=== PATIENT | male | born 1985 | race Caucasian/White ===

== ENCOUNTER → 2016-10-16 | Outpatient (CLI) | payer BC ==
[~2016-10-16] MED LIST: ONDN4T PO; PRED20TA PO
[2016-10-16 15:38] VITALS: BP 142/90
--- NOTE | 2016-10-16 15:38 | Urgent Care T Sheet Gen (E) ---
Intake General Temperature (Fahrenheit): 97.6 Pulse: 101 Blood Pressure Systolic: 142 Blood Pressure Diastolic: 90 (been taking Sudafed) Respirations: 18 SPO2: 96 Description of Symptoms Patient presents with nasal congestion x 3 days. No fever. No cough. States his teeth hurt. Had some left over Amoxicillin which he started taking a few days ago. Also been taking Sudafed. History of Present Illness Allergies: Coded Allergies: No Known Drug Allergies (Unverified , 02/11/14) Home Meds Active Scripts Prednisone 20 Mg [id number] Mg PO DAILY #6 TAB Prov:SAMANTHA CALVERT 10/16/16 Respiratory Constitutional Symptoms: No syptoms reported EENTM: Nose CongestionNo Throat pain Respiratory: No symptoms reported Cardiovascular: No symptoms reported Gastrointestinal/Abdominal: No symptoms reported Neurological: Headache All Other Systems Reviewed Remaining Systems: All other systems reviewed with negative findings Past Dxtogxd-Fxznbi-Auxtxc Hx Patient's Social History Alcohol Use: Occasionally Uses Smoking Status: Never smoker Surgeries/Hospitalizations Hospitalization/Surgery Hx: Orchiectomy, right port placement Respiratory Respiratory History: None Cardiovascular Cardiovascular History: None Comment: not being treated Neuro/Muscular Neuro/Muscular History: Back Problems, None Genitouinary Genitourinary History: None Gastrointestinal GI/Endocrine History: None Diabetes Diabetes: No HEENT Impaired Vision: None Hearing Impaired: None Integumentary Integumentary History: None Cancer History of Cancer?: Yes Cancer type: Testicular Psychosocial Behavior Disorders: None Physical Exam Physical Exam General Appearance: WD/WN No apparent distress Eyes, Ears, Nose, Throat Ex: TMs normal Pharynx normal Other (nasal congestion with clear, thin nasal drainage. turbinates are fairly normal in color. some tenderness over maxillary sinuses.) Neck Exam: SuppleNo Lymphadenopathy Respiratory Exam: Lungs clear Normal breath sounds Cardiovascular Exam: Regular rate, rhythm Departure Urgent Care Impression Impression: Primary Impression: URI (upper respiratory infection) Qualified Code: J00 - Acute nasopharyngitis [common cold] Departure Disposition: HOME OR SELF-CARE Condition: Stable Referrals: Daryl Lunsford MD (PCP) Additional Instructions: Most likely this is a viral URI however since he started the Amoxicillin, he needs to finish it. I have also prescribed some Prednisone for inflammation and congestion. DC OTC cold meds. They are most likely increasing his BP Rest. Fluids. No NSAIDs while on steroid Return as needed Patient understands DC instructions. All questions were answered. Scripts Prednisone 20 Mg [id number] Mg PO DAILY #6 TAB Prov:SAMANTHA CALVERT 10/16/16 End of report . SAMANTHA CALVERT Oct 16, 2016 11:13
== END ==
LOC: MHUC 10:52
PROVIDERS: ATTEND Physician Assistant
DX: J00 Acute nasopharyngitis [common cold] (principal)
CPT/HCPCS: 99213

== ENCOUNTER → 2016-11-13 | Outpatient (CLI) | payer BC ==
[2016-11-13 08:14] LABS: BASOPHILS % (AUTO) 1 % (0-2); EOSINOPHILS # (AUTO) 0.2 10^3uL; EOSINOPHILS % (AUTO) 4 % (0-4); LYMPHOCYTES # (AUTO) 2.3 X10^3; MEAN CORPUSCULAR HEMOGLOBIN 30.4 PG (26.0-34.0); MEAN CORPUSCULAR HGB CONC 34.1 g/dL (31.0-37.0); MEAN CORPUSCULAR VOLUME 89 FL (80-100); MEAN PLATELET VOLUME 9.9 FL (6.0-9.5); MONOCYTES # (AUTO) 0.6 X10^3; MONOCYTES % (AUTO) 10 % (3-11); NEUTROPHILS # (AUTO) 2.9 X10^3; NEUTROPHILS % (AUTO) 49 % (51-67); PLATELET COUNT 210 10^3uL (150-450); WHITE BLOOD COUNT 6.04 10^3uL (4.0-11.0)
[2016-11-13 08:30] LABS: ALBUMIN 4.6 g/dL (3.4-5.0); ANION GAP 16.6 MEQ/L (3-15); CALCULATED IONIZED CALCIUM 3.9 mg/dL (3.8-4.6); TOTAL PROTEIN 8.2 g/dL (6.4-8.5)
== END ==
LOC: LAB 08:00
PROVIDERS: ATTEND Internal Medicine Hematology & Oncology
DX: C62.12 Malignant neoplasm of descended left testis (principal)
CPT/HCPCS: 36415; 80053; 82105; 83615; 84702; 85025

== ENCOUNTER → 2016-11-14 | Outpatient (CLI) | payer BC | LOC: RAD 07:45 | PROVIDERS: ATTEND Internal Medicine Hematology & Oncology | DX: C62.12 Malignant neoplasm of descended left testis (principal) | CPT/HCPCS: 74178; Q9967 ==

== ENCOUNTER → 2016-12-22 | Outpatient (CLI) | payer BC ==
[~2016-12-22] MED LIST changes: -ONDN4T PO; -PRED20TA PO; +methylPREDNISolone 80 MG/ML (DEPO MEDROL) VIAL IM ONE
== END ==
LOC: PMC 13:11
PROVIDERS: ATTEND Family Medicine
DX: M54.5 Low back pain (principal)
CPT/HCPCS: 62323; J1040

== ENCOUNTER → 2017-02-05 | Outpatient (CLI) | payer BC ==
[~2017-02-05] MED LIST changes: +ONDN4T PO; +PRED20TA PO; -methylPREDNISolone 80 MG/ML (DEPO MEDROL) VIAL IM ONE
[2017-02-05 08:14] LABS: BASOPHILS % (AUTO) 0 % (0-2); EOSINOPHILS # (AUTO) 0.2 10^3uL; EOSINOPHILS % (AUTO) 3 % (0-4); LYMPHOCYTES # (AUTO) 2.3 X10^3; MEAN CORPUSCULAR HEMOGLOBIN 30.2 PG (26.0-34.0); MEAN CORPUSCULAR HGB CONC 33.6 g/dL (31.0-37.0); MEAN CORPUSCULAR VOLUME 90 FL (80-100); MONOCYTES # (AUTO) 0.5 X10^3; MONOCYTES % (AUTO) 10 % (3-11); NEUTROPHILS # (AUTO) 2.3 X10^3; NEUTROPHILS % (AUTO) 43 % (51-67); PLATELET COUNT 221 10^3uL (150-450); WHITE BLOOD COUNT 5.27 10^3uL (4.0-11.0)
[2017-02-05 08:40] LABS: ALBUMIN 4.7 g/dL (3.4-5.0); ANION GAP 17.4 MEQ/L (3-15); CALCULATED IONIZED CALCIUM 4.3 mg/dL (3.8-4.6); TOTAL PROTEIN 7.9 g/dL (6.4-8.5)
== END ==
LOC: LAB 08:01
PROVIDERS: ATTEND Internal Medicine Hematology & Oncology
DX: C62.12 Malignant neoplasm of descended left testis (principal)
CPT/HCPCS: 36415; 80053; 82105; 83615; 84702; 85025